=== PATIENT | female | born 1940 | race Caucasian/White ===

== ENCOUNTER 2022-04-06 11:24 | Emergency (ER) | payer MEDICARE, BC ==
[2022-04-06] MEDS ORDERED: Sodium Chloride 0.9% 10 ML Syringe FLUSH PRN ×2 (11:34→11:46)
[2022-04-06] MEDS ORDERED: Ondansetron 4 MG/2 ML SDV IV ONE (11:49)
[2022-04-06] MEDS ORDERED: Potassium Chloride 10% 20 MEQ/15 ML Soln 15 ML UD Cup PO ONE (11:50)
[2022-04-06] MEDS ORDERED: Potassium Chloride 20 MEQ in Premix Bag 1 BAG IV ONE (11:51)
[2022-04-06] MEDS ORDERED: Lidocaine 1% 10 ML MDV INJECT ONE (11:53)
[2022-04-06] MEDS ORDERED: Lidocaine 1% 30 ML SDV ONE (12:07)
[2022-04-06 12:17] LABS: ANION GAP 10.9 mEq/L (7-13); CHLORIDE,CL 101 mmol/L (98-107); SODIUM,NA 142 mmol/L (136-145)
[2022-04-06 12:28] LABS: ESTIMATED GFR 67 mL/min (>=60)
[2022-04-06 12:36] VITALS: BP 104/67; PULSE 81
== END 2022-04-06 14:42 | disposition home or self-care (01) ==
LOC: DL.ED 11:24
DX: E87.6 Hypokalemia (principal); Z88.0 Allergy status to penicillin; Z88.8 Allergy status to other drugs, medicaments and biological substances; Z79.899 Other long term (current) drug therapy
CPT/HCPCS: 36415; 80048; 83735; 84484; 85025; 93005; 93010; 96365; 96366; 96375; 99283; 99284-25; A9270-GY; J2405; J3480; J3490

== ENCOUNTER 2023-08-01 16:08 | Emergency (ER) | payer MEDICARE, BC ==
[2023-08-01 16:48] VITALS: BP 123/60; PULSE 60
[2023-08-01] MEDS: cefTRIAXone 1 GM, Lidocaine 1% 2.1 ML IM ONE (17:08)
== END 2023-08-01 17:38 | disposition home or self-care (01) ==
LOC: DL.ED 16:08
DX: J18.9 Pneumonia, unspecified organism (principal); E87.6 Hypokalemia; I10 Essential (primary) hypertension; E78.00 Pure hypercholesterolemia, unspecified; Z90.710 Acquired absence of both cervix and uterus; Z79.899 Other long term (current) drug therapy; Z88.5 Allergy status to narcotic agent; Z88.0 Allergy status to penicillin; Z88.8 Allergy status to other drugs, medicaments and biological substances
CPT/HCPCS: 96372; 99283; 99284; J0696; J3490

== ENCOUNTER 2023-12-24 15:32 | Emergency (ER) | payer MEDICARE, BC ==
[2023-12-24] MEDS ORDERED: Sodium Chloride 0.9% 10 ML Syringe FLUSH PRN (15:44)
[2023-12-24 16:05] LABS: BASOPHILS PERCENT AUTO 0.3 % (0.0-1.0); EOSINOPHILS PERCENT AUTO 0.1 % (1.0-3.0); HEMATOCRIT 44.1 % (37.0-47.0); HEMOGLOBIN 13.8 g/dL (12.0-16.0); LYMPHOCYTES PERCENT AUTO 19.5 % (20.5-50.1); MEAN CORPUSCULAR HGB CONC 31.3 g/dL (33.0-35.0); MEAN CORPUSCULAR VOLUME 95.9 fL (80-100); MONOCYTES PERCENT AUTO 11.5 % (2-8); NEUTROPHILS PERCENT AUTO 68.6 % (42.2-75.2); PLATELET COUNT,PLT 179 10^3/uL (150-450); WHITE BLOOD CELL COUNT,WBC 6.7 10^3/uL (5.0-10.0)
[2023-12-24] MEDS: Diltiazem 25 MG/5 ML SDV IVPUSH ONE (16:24)
[2023-12-24] MEDS: Diltiazem 125 MG in Sodium Chloride 0.9% 100 ML IV SCH (16:25)
[2023-12-24 16:27] LABS: A/G RATIO 1.2; ALBUMIN 3.5 g/dL (3.4-5.0); ANION GAP 13.6 mEq/L (7-13); BILIRUBIN TOTAL 1.2 mg/dL (0.2-1.0); BUN/CREATININE RATIO 10.3 (No establ ref range); CALCIUM 9.1 mg/dL (8.5-10.1); CREATININE 0.87 mg/dL (0.55-1.02); EST CRCL DRUG DOSING (CG) 36.32 mL/min; POTASSIUM,K 3.6 mmol/L (3.5-5.1); PROTEIN TOTAL,TP 6.3 g/dL (6.4-8.2)
[2023-12-24] MEDS: Sodium Chloride 0.9% 500 ML IV SCH (16:44)
[2023-12-24] MEDS ORDERED: Flumazenil 0.1 MG/ML 5 ML MDV IVPUSH PRN (17:48)
[2023-12-24] MEDS: LORazepam 2 MG/ML SDV IVPUSH ONE (17:51)
[2023-12-24 18:49] VITALS: BP 109/69; PULSE 80
== END 2023-12-24 18:40 ==
LOC: DL.ED 15:32
DX: I48.20 Chronic atrial fibrillation, unspecified (principal); E78.00 Pure hypercholesterolemia, unspecified; I10 Essential (primary) hypertension; Z90.710 Acquired absence of both cervix and uterus; Z79.899 Other long term (current) drug therapy; Z88.6 Allergy status to analgesic agent; Z88.8 Allergy status to other drugs, medicaments and biological substances; Z88.0 Allergy status to penicillin
CPT/HCPCS: 36415; 71045; 80053; 83735; 83880; 84443; 84484; 85025; 93005; 93010; 96365; 96366; 96375; 99285; 99285-25; J2060; J3490; J7040

== ENCOUNTER 2024-01-18 11:50 | Emergency (ER) | payer MEDICARE, BC ==
[2024-01-18 12:07] LABS: BASOPHILS PERCENT AUTO 0.3 % (0.0-1.0); EOSINOPHILS PERCENT AUTO 0.2 % (1.0-3.0); HEMATOCRIT 45.9 % (37.0-47.0); HEMOGLOBIN 14.7 g/dL (12.0-16.0); LYMPHOCYTES PERCENT AUTO 16.6 % (20.5-50.1); MEAN CORPUSCULAR HEMOGLOBIN 30.2 pg (27.0-34.0); MEAN CORPUSCULAR VOLUME 94.3 fL (80-100); MONOCYTES PERCENT AUTO 8.8 % (2-8); NEUTROPHILS PERCENT AUTO 74.1 % (42.2-75.2); PLATELET COUNT,PLT 230 10^3/uL (150-450); RED BLOOD CELL COUNT 4.87 10^6/uL (4.2-5.4); WHITE BLOOD CELL COUNT,WBC 6.5 10^3/uL (5.0-10.0)
[2024-01-18 12:28] LABS: INR 1.2 (0.9-1.2); PROTHROMBIN TIME 12.1 SEC (9.0-12.0)
[2024-01-18 12:30] LABS: A/G RATIO 1.18; ALBUMIN 3.3 g/dL (3.4-5.0); ANION GAP 11.9 mEq/L (7-13); BILIRUBIN TOTAL 1.9 mg/dL (0.2-1.0); CALCIUM 8.6 mg/dL (8.5-10.1); CREATININE 0.92 mg/dL (0.55-1.02); POTASSIUM,K 2.9 mmol/L (3.5-5.1); PROTEIN TOTAL,TP 6.1 g/dL (6.4-8.2)
[2024-01-18] MEDS: Potassium Chloride 10 MEQ Tab.ER PO ONE (12:42)
[2024-01-18] MEDS: Sodium Chloride 0.9% 250 ML IV SCH (12:42)
[2024-01-18] MEDS: Potassium Chloride 10 MEQ in Premix Bag 1 BAG IV ONE (12:42)
[2024-01-18 13:00] VITALS: BP 134/90; PULSE 105
== END 2024-01-18 14:04 ==
LOC: DL.ED 11:50
DX: I48.91 Unspecified atrial fibrillation (principal); I47.20 Ventricular tachycardia, unspecified; I10 Essential (primary) hypertension; E78.00 Pure hypercholesterolemia, unspecified; Z90.710 Acquired absence of both cervix and uterus; Z88.6 Allergy status to analgesic agent; Z88.0 Allergy status to penicillin; Z88.8 Allergy status to other drugs, medicaments and biological substances; Z79.51 Long term (current) use of inhaled steroids; Z79.899 Other long term (current) drug therapy
CPT/HCPCS: 36415; 71045; 80053; 83735; 83880; 84484; 85025; 85379; 85610; 85730; 93005; 96365; 99285; A9270; J3480; J7050

== ENCOUNTER 2024-03-20 11:49 | Inpatient (IN) | payer MEDICARE, BC ==
[2024-03-20] MEDS ORDERED: Albuterol/Ipratropium 3.0-0.5 MG/3 ML Neb Soln NEB PRN (16:55)
[2024-03-20] MEDS ORDERED: Ondansetron 4 MG/2 ML SDV IVPUSH PRN (16:55)
[2024-03-20] MEDS: Furosemide 40 MG Tab PO SCH (18:34)
[2024-03-20] MEDS: Metoprolol Tartrate 50 MG Tab PO SCH (21:04)
[2024-03-20] MEDS: Melatonin 3 MG Tab PO PRN (21:04)
[2024-03-20] MEDS: Apixaban 5 MG Tab PO SCH (21:04)
[2024-03-20] MEDS: Pravastatin 20 MG Tab PO SCH (21:04)
[2024-03-20] MEDS: Topiramate 25 MG Tab PO SCH (21:05)
[2024-03-20] MEDS: Metoprolol Tartrate 25 MG Tab PO SCH (21:05)
[2024-03-20] MEDS: Latanoprost 0.005% Ophth Soln 2.5 ML Bottle EYEBOTH SCH (21:05)
[2024-03-20] MEDS: Timolol Maleate 0.25% Ophth Soln 5 ML Bottle EYERT SCH (21:06)
[2024-03-21] MEDS: Omeprazole 20 MG Cap.CR PO SCH (04:55)
[2024-03-21 06:11] LABS: BASOPHILS PERCENT AUTO 0.1 % (0.0-1.0); EOSINOPHILS PERCENT AUTO 0.4 % (1.0-3.0); HEMATOCRIT 45.1 % (37.0-47.0); HEMOGLOBIN 14.8 g/dL (12.0-16.0); LYMPHOCYTES PERCENT AUTO 14.2 % (20.5-50.1); MEAN CORPUSCULAR HEMOGLOBIN 29.8 pg (27.0-34.0); MEAN CORPUSCULAR HGB CONC 32.8 g/dL (33.0-35.0); MEAN CORPUSCULAR VOLUME 90.9 fL (80-100); MONOCYTES PERCENT AUTO 16.5 % (2-8); NEUTROPHILS PERCENT AUTO 68.8 % (42.2-75.2); PLATELET COUNT,PLT 265 10^3/uL (150-450); RED BLOOD CELL COUNT 4.96 10^6/uL (4.2-5.4); WHITE BLOOD CELL COUNT,WBC 9.3 10^3/uL (5.0-10.0)
[2024-03-21 06:30] LABS: INR 1.2 (0.9-1.2); PROTHROMBIN TIME 12.1 SEC (9.0-12.0); PTT,PARTIAL THROMBOPLSTIN TIME 51.5 SEC (22.0-34.0)
[2024-03-21 06:46] LABS: ALBUMIN 2.7 g/dL (3.4-5.0); ANION GAP 9.6 mEq/L (7-13); BILIRUBIN TOTAL 1.4 mg/dL (0.2-1.0); BUN/CREATININE RATIO 34.7 (No establ ref range); CREATININE 1.01 mg/dL (0.55-1.02); EST CRCL DRUG DOSING (CG) 31.29 mL/min; MAGNESIUM 2.1 mg/dL (1.8-2.4); POTASSIUM,K 3.6 mmol/L (3.5-5.1); PROTEIN TOTAL,TP 6.2 g/dL (6.4-8.2); TSH ULTRASENSITIVE 2.07 uIU/mL (0.36-3.74)
[2024-03-21 07:12] LABS: A/G RATIO 0.77
[2024-03-21] MEDS: Enalapril 5 MG Tab PO SCH (09:59)
[2024-03-21] MEDS: Magnesium Oxide 400 MG Tab PO SCH (10:00)
[2024-03-21] MEDS: metFORMIN 500 MG Tab PO SCH (10:00)
[2024-03-21] MEDS: Potassium Chloride 10 MEQ Tab.ER PO SCH (10:01)
[2024-03-21] MEDS: Spironolactone 25 MG Tab PO SCH (10:01)
[2024-03-21] MEDS: Diltiazem 240 MG Cap.ER PO SCH (10:01)
[2024-03-21] MEDS: DULoxetine 30 MG Cap PO SCH (10:02)
[2024-03-22] MEDS: Enalapril 5 MG Tab PO SCH (09:40)
[2024-03-22] MEDS: Spironolactone 25 MG Tab PO SCH (09:41)
[2024-03-22] MEDS: Furosemide 20 MG Tab PO SCH (09:42)
[2024-03-23 06:11] LABS: HEMOGLOBIN 13.8 g/dL (12.0-16.0); MEAN CORPUSCULAR HEMOGLOBIN 29.4 pg (27.0-34.0); MEAN CORPUSCULAR HGB CONC 32.1 g/dL (33.0-35.0); MEAN CORPUSCULAR VOLUME 91.7 fL (80-100); PLATELET COUNT,PLT 268 10^3/uL (150-450); RED BLOOD CELL COUNT 4.69 10^6/uL (4.2-5.4); WHITE BLOOD CELL COUNT,WBC 11.6 10^3/uL (5.0-10.0)
[2024-03-23 06:22] LABS: BASOPHILS PERCENT AUTO 0.1 % (0.0-1.0); EOSINOPHILS PERCENT AUTO 0.3 % (1.0-3.0); LYMPHOCYTES PERCENT AUTO 14.1 % (20.5-50.1); MONOCYTES PERCENT AUTO 13.4 % (2-8); NEUTROPHILS PERCENT AUTO 72.1 % (42.2-75.2)
[2024-03-23 06:38] LABS: ALBUMIN 2.6 g/dL (3.4-5.0); ANION GAP 9.3 mEq/L (7-13); BILIRUBIN TOTAL 1.5 mg/dL (0.2-1.0); BUN/CREATININE RATIO 27.8 (No establ ref range); CALCIUM 8.8 mg/dL (8.5-10.1); CREATININE 0.9 mg/dL (0.55-1.02); EST CRCL DRUG DOSING (CG) 35.11 mL/min; MAGNESIUM 1.9 mg/dL (1.8-2.4); POTASSIUM,K 4.3 mmol/L (3.5-5.1); PROTEIN TOTAL,TP 5.9 g/dL (6.4-8.2)
[2024-03-23 06:43] LABS: A/G RATIO 0.79
[2024-03-23 06:47] LABS: HEMOGLOBIN A1C 6.9 % (<5.7)
[2024-03-23 07:06] LABS: BAND PERCENT MAN 1 %; LYMPHOCYTES PERCENT MAN 13 % (20-50); MONOCYTES PERCENT MAN 13 % (2-8); SEG NEUTROPHILS PERCENT MAN 73 % (42-75)
[2024-03-24] MEDS: Ondansetron 4 MG Tab.DIS PO PRN (12:12)
[2024-03-24] MEDS: Docusate Sodium 100 MG Cap PO PRN (12:12)
[2024-03-25] MEDS: Polyethylene Glycol 3350 Powder 17 GM Packet PO PRN (10:10)
[2024-03-25] MEDS: Metoprolol Tartrate 25 MG Tab PO ONE (22:16)
[2024-03-26] MEDS: Furosemide 20 MG Tab PO SCH (09:04)
[2024-03-27] MEDS ORDERED: Bisacodyl 10 MG Supp RECTAL PRN (11:31)
[2024-03-27] MEDS: Omeprazole 20 MG Cap.CR PO SCH (14:06)
[2024-03-27] MEDS: Magnesium Oxide 400 MG Tab PO SCH (14:06)
[2024-03-27] MEDS: Furosemide 20 MG Tab PO SCH (14:08)
[2024-03-27] MEDS: Spironolactone 25 MG Tab PO SCH (14:08)
[2024-03-27] MEDS: Apixaban 5 MG Tab PO SCH (14:08)
[2024-03-27] MEDS: Metoprolol Tartrate 25 MG Tab PO SCH (14:09)
[2024-03-27] MEDS: Enalapril 5 MG Tab PO SCH (14:09)
[2024-03-27] MEDS: Diltiazem 240 MG Cap.ER PO SCH (14:09)
[2024-03-27] MEDS: Topiramate 25 MG Tab PO SCH (14:10)
[2024-03-27] MEDS: Acetaminophen 325 MG Tab PO PRN (20:49)
[2024-03-27] MEDS: Pravastatin 20 MG Tab PO SCH (20:52)
[2024-03-27] MEDS: Timolol Maleate 0.25% Ophth Soln 5 ML Bottle EYERT SCH (20:52)
[2024-03-27] MEDS: Latanoprost 0.005% Ophth Soln 2.5 ML Bottle EYEBOTH SCH (20:54)
[2024-03-28] MEDS: Potassium Chloride 10 MEQ Tab.ER PO SCH (09:49)
[2024-03-28] MEDS: DULoxetine 30 MG Cap PO SCH (09:50)
[2024-03-28] MEDS: Metoprolol Tartrate 50 MG Tab PO ONE (21:27)
[2024-03-29] MEDS ORDERED: Metoprolol Succinate 50 MG Tab.ER PO SCH (09:00)
[2024-03-29] MEDS: Metoprolol Succinate 50 MG Tab.ER PO SCH (09:15)
[2024-03-29] MEDS ORDERED: Polyethylene Glycol 3350 Powder 17 GM Packet PO PRN (09:33)
[2024-03-29] MEDS: Sennosides/Docusate Sodium 50-8.6 MG Tab PO PRN (20:29)
[2024-03-30 06:51] LABS: BASOPHILS PERCENT AUTO 0.2 % (0.0-1.0); EOSINOPHILS PERCENT AUTO 0.1 % (1.0-3.0); HEMOGLOBIN 12.3 g/dL (12.0-16.0); LYMPHOCYTES PERCENT AUTO 16.5 % (20.5-50.1); MEAN CORPUSCULAR HEMOGLOBIN 30.1 pg (27.0-34.0); MEAN CORPUSCULAR HGB CONC 32.4 g/dL (33.0-35.0); MEAN CORPUSCULAR VOLUME 93.1 fL (80-100); MONOCYTES PERCENT AUTO 13.6 % (2-8); NEUTROPHILS PERCENT AUTO 69.6 % (42.2-75.2); PLATELET COUNT,PLT 263 10^3/uL (150-450); RED BLOOD CELL COUNT 4.08 10^6/uL (4.2-5.4); WHITE BLOOD CELL COUNT,WBC 8.2 10^3/uL (5.0-10.0)
[2024-03-30 07:05] LABS: INR 1.1 (0.9-1.2); PROTHROMBIN TIME 11.9 SEC (9.0-12.0)
[2024-03-30 07:16] LABS: ALBUMIN 2.1 g/dL (3.4-5.0); ANION GAP 10.5 mEq/L (7-13); BUN/CREATININE RATIO 17.6 (No establ ref range); CALCIUM 8.4 mg/dL (8.5-10.1); CREATININE 0.74 mg/dL (0.55-1.02); EST CRCL DRUG DOSING (CG) 42.7 mL/min; MAGNESIUM 1.7 mg/dL (1.8-2.4); POTASSIUM,K 4.5 mmol/L (3.5-5.1); PROTEIN TOTAL,TP 5.4 g/dL (6.4-8.2)
[2024-03-30 07:19] LABS: A/G RATIO 0.64
[2024-03-30] MEDS: Magnesium Oxide 400 MG Tab PO SCH (10:10)
[2024-03-30] MEDS: Docusate Sodium 100 MG Cap PO SCH (14:11)
[2024-03-30] MEDS: Polyethylene Glycol 3350 Powder 17 GM Packet PO SCH (15:41)
[2024-03-30] MEDS: Sennosides/Docusate Sodium 50-8.6 MG Tab PO SCH (21:49)
[2024-03-31] MEDS ORDERED: Docusate Sodium 100 MG Cap PO PRN (07:29)
[2024-03-31] MEDS ORDERED: Polyethylene Glycol 3350 Powder 17 GM Packet PO PRN (07:31)
[2024-03-31] MEDS ORDERED: Sennosides/Docusate Sodium 50-8.6 MG Tab PO PRN (07:31)
[2024-03-31 07:44] VITALS: PULSE 100
[2024-03-31] MEDS: Furosemide 40 MG Tab PO SCH (09:11)
[2024-03-31] MEDS: Metoprolol Succinate 25 MG Tab.ER PO SCH (09:12)
[2024-03-31] MEDS: Furosemide 40 MG Tab ONE (09:58)
[2024-03-31 11:14] VITALS: BP 113/62
== END 2024-03-31 13:40 | disposition home or self-care (01) | DRG 948 ==
LOC: OBSVTOIN 15:10 → DL.MS 15:10
PROVIDERS: ADMIT Internal Medicine; ATTEND Internal Medicine
DX: R53.81 Other malaise (principal); J84.9 Interstitial pulmonary disease, unspecified; E87.1 Hypo-osmolality and hyponatremia; I50.32 Chronic diastolic (congestive) heart failure; I48.91 Unspecified atrial fibrillation; Z66 Do not resuscitate; I11.0 Hypertensive heart disease with heart failure; E11.9 Type 2 diabetes mellitus without complications; M19.90 Unspecified osteoarthritis, unspecified site; H40.9 Unspecified glaucoma; E88.09 Other disorders of plasma-protein metabolism, not elsewhere classified; E78.00 Pure hypercholesterolemia, unspecified; G47.33 Obstructive sleep apnea (adult) (pediatric); E03.8 Other specified hypothyroidism; D72.829 Elevated white blood cell count, unspecified; F32.A Depression, unspecified; K21.9 Gastro-esophageal reflux disease without esophagitis; G43.909 Migraine, unspecified, not intractable, without status migrainosus; E66.3 Overweight; Z85.038 Personal history of other malignant neoplasm of large intestine; Z85.048 Personal history of other malignant neoplasm of rectum, rectosigmoid junction, and anus; Z88.0 Allergy status to penicillin; Z79.01 Long term (current) use of anticoagulants; Z88.8 Allergy status to other drugs, medicaments and biological substances; Z90.49 Acquired absence of other specified parts of digestive tract; Z90.710 Acquired absence of both cervix and uterus; Z96.619 Presence of unspecified artificial shoulder joint; Z96.659 Presence of unspecified artificial knee joint; Z79.899 Other long term (current) drug therapy; Z68.26 Body mass index [BMI] 26.0-26.9, adult; Z72.0 Tobacco use; Z98.890 Other specified postprocedural states
CPT/HCPCS: 36415; 80053; 82248; 83036; 83735; 84132; 84443; 85025; 85610; 85730; 97110-GO; 97110-GP; 97161-GP; 97165-GO; 97530-GO; 97530-GP; 99306; 99308; 99309; 99315; A9270-GY

== ENCOUNTER 2024-04-10 14:11 | Inpatient (IN) | payer MEDICARE, BC ==
[2024-04-10] MEDS ORDERED: Sodium Chloride 0.9% 10 ML Syringe FLUSH PRN (14:47)
[2024-04-10 15:04] LABS: BASOPHILS PERCENT AUTO 0.1 % (0.0-1.0); EOSINOPHILS PERCENT AUTO 0.1 % (1.0-3.0); HEMATOCRIT 38.3 % (37.0-47.0); HEMOGLOBIN 12.4 g/dL (12.0-16.0); LYMPHOCYTES PERCENT AUTO 16.6 % (20.5-50.1); MEAN CORPUSCULAR HEMOGLOBIN 30.9 pg (27.0-34.0); MEAN CORPUSCULAR HGB CONC 32.4 g/dL (33.0-35.0); MEAN CORPUSCULAR VOLUME 95.5 fL (80-100); MONOCYTES PERCENT AUTO 11.5 % (2-8); NEUTROPHILS PERCENT AUTO 71.7 % (42.2-75.2); PLATELET COUNT,PLT 276 10^3/uL (150-450); RED BLOOD CELL COUNT 4.01 10^6/uL (4.2-5.4); WHITE BLOOD CELL COUNT,WBC 7.3 10^3/uL (5.0-10.0)
[2024-04-10 15:24] LABS: ALBUMIN 2.6 g/dL (3.4-5.0); ANION GAP 12.3 mEq/L (7-13); BILIRUBIN TOTAL 0.8 mg/dL (0.2-1.0); BUN/CREATININE RATIO 17.4 (No establ ref range); CALCIUM 8.5 mg/dL (8.5-10.1); CREATININE 1.21 mg/dL (0.55-1.02); EST CRCL DRUG DOSING (CG) 26.12 mL/min; POTASSIUM,K 4.3 mmol/L (3.5-5.1); PROTEIN TOTAL,TP 5.5 g/dL (6.4-8.2)
[2024-04-10 15:25] LABS: A/G RATIO 0.9
[2024-04-10] MEDS: Furosemide 40 MG/4 ML VIAL IVPUSH ONE (16:13)
[2024-04-10] MEDS ORDERED: Ondansetron 4 MG/2 ML SDV IVPUSH PRN (18:59)
[2024-04-10] MEDS ORDERED: Polyethylene Glycol 3350 Powder 17 GM Packet PO PRN (18:59)
[2024-04-10] MEDS ORDERED: Sennosides/Docusate Sodium 50-8.6 MG Tab PO PRN (18:59)
[2024-04-10] MEDS ORDERED: Acetaminophen 325 MG Tab PO PRN (18:59)
[2024-04-10] MEDS ORDERED: Naloxone 2 MG/2 ML Syringe IVPUSH PRN (18:59)
[2024-04-10] MEDS ORDERED: Magnesium Hydroxide 400 MG/5 ML Susp 30 ML Cup PO PRN (18:59)
[2024-04-10] MEDS ORDERED: METHOCARBAMOL 500 MG PO PRN (19:13)
[2024-04-10 19:22] LABS: T4 FREE 1.25 ng/dL (0.76-1.46); TSH ULTRASENSITIVE 1.61 uIU/mL (0.36-3.74)
[2024-04-10] MEDS: Topiramate 25 MG Tab PO SCH (19:50)
[2024-04-10] MEDS: Midodrine 5 MG Tab PO ONE (19:51)
[2024-04-10] MEDS: Apixaban 5 MG Tab PO SCH (19:51)
[2024-04-10] MEDS: Sodium Chloride 0.9% 1,000 ML IV SCH (20:30)
[2024-04-10] MEDS: Albumin 25% 12.5 GM in Premix Bag 1 BAG IV SCH (21:01)
[2024-04-10] MEDS: Timolol Maleate 0.25% Ophth Soln 5 ML Bottle EYERT SCH (22:32)
[2024-04-11] MEDS ORDERED: Albumin 25% 12.5 GM in Premix Bag 1 BAG IV SCH
[2024-04-11] MEDS: Furosemide 100 MG in Sodium Chloride 0.9% 90 ML IV SCH (00:24)
[2024-04-11] MEDS: HYDROmorphone 0.5 MG/0.5 ML Syringe IVPUSH PRN (00:37)
[2024-04-11] MEDS: Albumin 25% 12.5 GM in Premix Bag 1 BAG IV SCH (02:01)
[2024-04-11] MEDS: Pantoprazole 40 MG Tab.CR PO SCH (05:54)
[2024-04-11] MEDS: Midodrine 5 MG Tab PO SCH (05:54)
[2024-04-11 06:18] LABS: BASOPHILS PERCENT AUTO 0.2 % (0.0-1.0); HEMATOCRIT 35.8 % (37.0-47.0); HEMOGLOBIN 11.2 g/dL (12.0-16.0); LYMPHOCYTES PERCENT AUTO 18.8 % (20.5-50.1); MEAN CORPUSCULAR HEMOGLOBIN 30.1 pg (27.0-34.0); MEAN CORPUSCULAR HGB CONC 31.3 g/dL (33.0-35.0); MEAN CORPUSCULAR VOLUME 96.2 fL (80-100); MONOCYTES PERCENT AUTO 11.5 % (2-8); NEUTROPHILS PERCENT AUTO 69.5 % (42.2-75.2); PLATELET COUNT,PLT 239 10^3/uL (150-450); RED BLOOD CELL COUNT 3.72 10^6/uL (4.2-5.4); WHITE BLOOD CELL COUNT,WBC 5.9 10^3/uL (5.0-10.0)
[2024-04-11 06:40] LABS: ALBUMIN 2.6 g/dL (3.4-5.0); ANION GAP 10.4 mEq/L (7-13); BILIRUBIN TOTAL 0.8 mg/dL (0.2-1.0); BUN/CREATININE RATIO 21.7 (No establ ref range); CALCIUM 8.1 mg/dL (8.5-10.1); CREATININE 0.92 mg/dL (0.55-1.02); EST CRCL DRUG DOSING (CG) 39.31 mL/min; POTASSIUM,K 3.4 mmol/L (3.5-5.1)
[2024-04-11 06:45] LABS: A/G RATIO 1.08
[2024-04-11] MEDS: Magnesium Oxide 400 MG Tab PO SCH (10:04)
[2024-04-11] MEDS: Diltiazem 240 MG Cap.ER PO SCH (10:04)
[2024-04-11] MEDS: Potassium Chloride 10 MEQ Tab.ER PO SCH (10:05)
[2024-04-11] MEDS: Spironolactone 25 MG Tab PO SCH (10:06)
[2024-04-11] MEDS: Potassium Chloride 10 MEQ Tab.ER PO ONE (17:07)
[2024-04-11] MEDS: Aluminum Hydroxide/Magnesium Hydroxide/Simethicone Susp 30 ML Cup PO PRN (20:58)
[2024-04-11] MEDS: Simethicone 80 MG Tab.Chew PO PRN (20:58)
[2024-04-12 06:32] LABS: BASOPHILS PERCENT AUTO 0.1 % (0.0-1.0); EOSINOPHILS PERCENT AUTO 0.1 % (1.0-3.0); HEMATOCRIT 37.7 % (37.0-47.0); HEMOGLOBIN 11.6 g/dL (12.0-16.0); LYMPHOCYTES PERCENT AUTO 16.2 % (20.5-50.1); MEAN CORPUSCULAR HEMOGLOBIN 30.1 pg (27.0-34.0); MEAN CORPUSCULAR HGB CONC 30.8 g/dL (33.0-35.0); MEAN CORPUSCULAR VOLUME 97.9 fL (80-100); MONOCYTES PERCENT AUTO 12.1 % (2-8); NEUTROPHILS PERCENT AUTO 71.5 % (42.2-75.2); PLATELET COUNT,PLT 241 10^3/uL (150-450); RED BLOOD CELL COUNT 3.85 10^6/uL (4.2-5.4); WHITE BLOOD CELL COUNT,WBC 8.1 10^3/uL (5.0-10.0)
[2024-04-12 06:54] LABS: ALBUMIN 3.3 g/dL (3.4-5.0); ANION GAP 10.2 mEq/L (7-13); BILIRUBIN TOTAL 1.1 mg/dL (0.2-1.0); BUN/CREATININE RATIO 15.6 (No establ ref range); CALCIUM 8.7 mg/dL (8.5-10.1); CREATININE 0.96 mg/dL (0.55-1.02); EST CRCL DRUG DOSING (CG) 37.67 mL/min; POTASSIUM,K 4.2 mmol/L (3.5-5.1); PROTEIN TOTAL,TP 5.6 g/dL (6.4-8.2)
[2024-04-12 06:56] LABS: A/G RATIO 1.43
[2024-04-12] MEDS: Potassium Chloride 10 MEQ Tab.ER PO SCH (10:02)
[2024-04-12] MEDS: Bumetanide 1 MG/4 ML MDV IVPUSH ONE ×2 (12:37→22:04)
[2024-04-12] MEDS ORDERED: Bumetanide 1 MG Tab PO SCH (14:00)
[2024-04-12] MEDS: Melatonin 3 MG Tab PO PRN (22:02)
[2024-04-13] MEDS: Bumetanide 1 MG Tab PO SCH (09:45)
[2024-04-13] MEDS: Albuterol/Ipratropium 3.0-0.5 MG/3 ML Neb Soln NEB PRN (09:48)
[2024-04-13 13:00] LABS: BASOPHILS PERCENT AUTO 0.2 % (0.0-1.0); EOSINOPHILS PERCENT AUTO 0.1 % (1.0-3.0); HEMATOCRIT 42.1 % (37.0-47.0); HEMOGLOBIN 13.1 g/dL (12.0-16.0); LYMPHOCYTES PERCENT AUTO 11.5 % (20.5-50.1); MEAN CORPUSCULAR HEMOGLOBIN 30.3 pg (27.0-34.0); MEAN CORPUSCULAR HGB CONC 31.1 g/dL (33.0-35.0); MEAN CORPUSCULAR VOLUME 97.5 fL (80-100); MONOCYTES PERCENT AUTO 10.1 % (2-8); NEUTROPHILS PERCENT AUTO 78.1 % (42.2-75.2); PLATELET COUNT,PLT 268 10^3/uL (150-450); RED BLOOD CELL COUNT 4.32 10^6/uL (4.2-5.4); WHITE BLOOD CELL COUNT,WBC 9.1 10^3/uL (5.0-10.0)
[2024-04-13 13:20] LABS: A/G RATIO 1.15; ALBUMIN 3.1 g/dL (3.4-5.0); ANION GAP 9.6 mEq/L (7-13); BILIRUBIN TOTAL 1.5 mg/dL (0.2-1.0); BUN/CREATININE RATIO 11.9 (No establ ref range); CALCIUM 8.7 mg/dL (8.5-10.1); CREATININE 1.09 mg/dL (0.55-1.02); EST CRCL DRUG DOSING (CG) 33.18 mL/min; POTASSIUM,K 3.6 mmol/L (3.5-5.1); PROTEIN TOTAL,TP 5.8 g/dL (6.4-8.2)
[2024-04-13] MEDS: Apixaban 5 MG Tab PO SCH (21:47)
[2024-04-13] MEDS: Acetaminophen/HYDROcodone 325-5 MG Tab PO PRN (21:48)
[2024-04-13] MEDS: MAGNESIUM PO SCH (21:49)
[2024-04-14 06:39] LABS: BASOPHILS PERCENT AUTO 0.1 % (0.0-1.0); EOSINOPHILS PERCENT AUTO 0.1 % (1.0-3.0); HEMATOCRIT 40.3 % (37.0-47.0); HEMOGLOBIN 12.7 g/dL (12.0-16.0); LYMPHOCYTES PERCENT AUTO 17.6 % (20.5-50.1); MEAN CORPUSCULAR HEMOGLOBIN 30.7 pg (27.0-34.0); MEAN CORPUSCULAR HGB CONC 31.5 g/dL (33.0-35.0); MEAN CORPUSCULAR VOLUME 97.3 fL (80-100); MONOCYTES PERCENT AUTO 13.2 % (2-8); PLATELET COUNT,PLT 247 10^3/uL (150-450); RED BLOOD CELL COUNT 4.14 10^6/uL (4.2-5.4); WHITE BLOOD CELL COUNT,WBC 7.7 10^3/uL (5.0-10.0)
[2024-04-14 06:58] LABS: ALBUMIN 2.9 g/dL (3.4-5.0); ANION GAP 7.2 mEq/L (7-13); BILIRUBIN TOTAL 1.5 mg/dL (0.2-1.0); BUN/CREATININE RATIO 15.4 (No establ ref range); CALCIUM 8.5 mg/dL (8.5-10.1); CREATININE 0.91 mg/dL (0.55-1.02); EST CRCL DRUG DOSING (CG) 39.74 mL/min; POTASSIUM,K 3.2 mmol/L (3.5-5.1); PROTEIN TOTAL,TP 5.4 g/dL (6.4-8.2)
[2024-04-14 06:59] LABS: A/G RATIO 1.16
[2024-04-14 07:30] VITALS: BP 131/65; PULSE 89
[2024-04-14] MEDS: Metoprolol Tartrate 25 MG Tab PO SCH (08:34)
[2024-04-14] MEDS ORDERED: Latanoprost 0.005% Ophth Soln 2.5 ML Bottle EYEBOTH SCH (21:00)
== END 2024-04-14 13:20 | disposition home or self-care (01) | DRG 291 ==
LOC: DL.ED 14:11 → DL.MS 15:35
PROVIDERS: ADMIT Internal Medicine; ATTEND Internal Medicine
DX: I11.0 Hypertensive heart disease with heart failure (principal); I50.33 Acute on chronic diastolic (congestive) heart failure; N17.9 Acute kidney failure, unspecified; E87.79 Other fluid overload; I48.91 Unspecified atrial fibrillation; J84.9 Interstitial pulmonary disease, unspecified; E11.9 Type 2 diabetes mellitus without complications; E44.0 Moderate protein-calorie malnutrition; Z66 Do not resuscitate; E78.5 Hyperlipidemia, unspecified; Z88.6 Allergy status to analgesic agent; G47.33 Obstructive sleep apnea (adult) (pediatric); E78.00 Pure hypercholesterolemia, unspecified; G47.30 Sleep apnea, unspecified; F32.A Depression, unspecified; E66.9 Obesity, unspecified; Z96.659 Presence of unspecified artificial knee joint; I48.0 Paroxysmal atrial fibrillation; I27.20 Pulmonary hypertension, unspecified; E03.9 Hypothyroidism, unspecified; E11.65 Type 2 diabetes mellitus with hyperglycemia; E87.6 Hypokalemia; I95.9 Hypotension, unspecified; Z79.01 Long term (current) use of anticoagulants; Z85.038 Personal history of other malignant neoplasm of large intestine; Z98.890 Other specified postprocedural states; Z88.0 Allergy status to penicillin; Z88.8 Allergy status to other drugs, medicaments and biological substances; Z79.899 Other long term (current) drug therapy; Z79.51 Long term (current) use of inhaled steroids; Z87.81 Personal history of (healed) traumatic fracture; Z68.26 Body mass index [BMI] 26.0-26.9, adult; Z90.710 Acquired absence of both cervix and uterus
CPT/HCPCS: 36415; 51702; 74176; 80053; 83735; 83880; 84439; 84443; 85025; 97165-GO; 97530-GO; 99223; 99232; 99233; 99238; 99284; 99285; A9270-GY; J1940; J3490; J7030; J7620-GY; P9047